=== PATIENT | male | born 1985 | race Caucasian/White ===

== ENCOUNTER 2021-05-30 14:38 | Emergency (ER) | payer OTHER, SELFPAY | END 2021-05-30 17:27 | disposition left against medical advice (07) | PROVIDERS: Emergency Provider Emergency Medicine | DX: H57.12 Ocular pain, left eye (principal) ==

== ENCOUNTER 2023-09-12 16:00 | Outpatient (AMB) | payer OTHER, SELFPAY ==
--- NOTE | 2023-09-12 16:03 | AM.OFFWIN_ITS ---
Intake Vital Signs 3 09/12/23 16:05 Height 5 ft 5 in Weight 114 lb BMI 19.0 BP 140/80 H Blood Pressure Location Rt brachial Position Sitting Pulse 114 H Pulse Source Pulse Oximeter Pulse Oximetry (%) 97 Oxygen Delivery Method Room Air Intake Visit Reasons: EP Infection RT turner swollen (lobby) Intake Note: Pt is here c/o swollen right turner. Pt states he does have an infection. Patient Tobacco Use Status: Current everyday Tobacco user Allergies No Known Allergies Allergy (Unverified 03/25/20 16:06) naproxen Allergy (Unknown, Uncoded 06/22/15 00:00) per patient Do you need a note to return to daycare/school/sports/work: No HPI HPI Comments 2 History of Present Illness0 Details 38 y/o male patient who presents to walk in clinic with c/o redness, tenderness and swelling right leg (turner) for 4 days now. Reports that the redness is spreading and now lower leg/Ankle is swollen. Denies fevers, chills, nausea or vomiting. Pt has Substance abuse disorder and currently of Methadone. He does admit to heavy drug use in the past few days - IV drug use. He believes he has an infection from using dirty needle. [facility] Social History Patient Tobacco Use Status: Current everyday Tobacco user Review of Systems Const All systems reviewed & are unremarkable except as noted in HPI and below Physical Exam Vital Signs: Last Vital Signs Pulse 114 H 09/12/23 16:05 BP 140/80 H 09/12/23 16:05 Pulse Ox 97 09/12/23 16:05 Oxygen Delivery Method Room Air 09/12/23 16:05 BMI result Body Mass Index 19.0 Const General: no acute distress and poor hygiene Nutritional Appearance: thin Orientation/consciousness: patient oriented x3 Skin Wounds: wounds noted (Right Turner/leg - redness, swelling and draining yellow/pus. ) Full body images: 2 1. Redness, tender and swollen,Yellow discharge Neuro General: patient oriented x3, gait normal and no focal motor deficits Motor exam (neuro): 5/5 motor strength present throughout Extrem Right lower extremity: full ROM, lower leg Details: erythema Location: of the mid lower leg (Turner) Location: anteromedially, tenderness Location: of the midshaft tibia, pitting edema Details: 2+ and warmth Location: of the mid lower leg and ankle Details: tenderness, swelling Details: diffusely, normal ROM and warmth Location: diffusely; no crepitus Left lower extremity: normal to inspection and full ROM Psych Speech and movement: Normal speech and movement present Attitude: cooperative Assessment & Plan Assessment & Plan (1) Cellulitis of skin: Code(s): L03.90 - Cellulitis, unspecified Plan: Instructed the Pt to watch for: - Rapid progression of symptoms with severe sepsis of shock - Severe joint pain - High fevers, chills, nausea or vomiting - Dusky skin appearance or woody induration. And go to ED immediately. Cleaned the wound, and wrapped with Xeroform and Kerlix dressing. Wrapped the Ankle with Bhavin wrap. Plan Instructed the Pt to watch for: - Rapid progression of symptoms with severe sepsis of shock - Severe joint pain - High fevers, chills, nausea or vomiting - Dusky skin ap Medications: New 2 dicloxacillin 500 mg PO Q6H 7 days 28 caps 0RF L03.90 - Cellulitis, unspecified Patient Instructions: Keep Area covered and dry for at-least 24 hours. Coding Level of Care Code Est Pt Level 4 (42610) Diagnoses Cellulitis of skin L03.90 Time Spent (min) 20 Comment Spent 20 minutes cleaning dressing wound
[2023-09-12 16:05] VITALS: BP 140/80; PULSE 114; O2SAT 97; BMI 19.0
== END 2023-09-12 16:44 | disposition home or self-care (01) ==
PROVIDERS: Visit Provider Nurse Practitioner Family
DX: L03.90 Cellulitis, unspecified (principal)
CPT/HCPCS: 99214